=== PATIENT | female | born 1975 | race African-American/Black ===

== ENCOUNTER 2018-05-20 18:29 | Emergency (ER) | payer MEDICAID ==
[~2018-05-20] VITALS: Ht 172.7 cm; Wt 126.0 kg
[2018-05-20 19:05] VITALS: BP 177/103
== END 2018-05-20 22:15 | disposition left against medical advice (07) ==
LOC: ER 18:29
DX: R10.2 Pelvic and perineal pain (principal); Z53.21 Procedure and treatment not carried out due to patient leaving prior to being seen by health care provider
CPT/HCPCS: 82962